=== PATIENT | female | born 1990 | race African-American/Black ===

== ENCOUNTER 2023-05-29 13:48 | Emergency (ER) | payer OTHER, SELFPAY ==
[2023-05-29] VITALS (16 sets, daily range): BP systolic 137–170; BP diastolic 77–123; PULSE 81–102; RESP 13–30; TEMP 36.9; O2SAT 77–100; BMI 33.2
--- NOTE | 2023-05-29 14:00 | ECG_ITS ---
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
--- NOTE | 2023-05-29 14:00 | XR_ITS ---
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 CLINICAL INDICATION: 33 years Female CP, HTN FINDINGS: The cardiomediastinal silhouette and pulmonary vasculature are within normal limits. The lungs are clear. There is no evidence of pleural effusion or pneumothorax. XR/XR chest 1V IMPRESSION: Chest radiograph is within normal limits. Electronically authenticated by: EVIN MILLER Date: 05/29/2023 14:37
--- NOTE | 2023-05-29 14:00 | ED.CHESTPAI1 ---
HPI - Chest Pain General Chief Complaint: Chest Pain Stated Complaint: GENERAL WEAKNESS Time Seen by Provider: 05/29/23 13:54 Source: patient Mode of arrival: ambulance Limitations: no limitations History of Present Illness HPI narrative: 33 year old female presents to the ED for intermittent CP, HTN. Onset was yesterday. Denies fever, chills, cough, SOB. Denies dizziness, vision changes, CUEVAS, weakness. She was started on amlodipine yesterday. She has been at [facility] for drug rehab due to fentanyl use. She arrived there 05/27/23. Denies pain currently. 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 Related Data Home Medications Medication Instructions Recorded Confirmed amlodipine 5 mg tablet 5 mg PO DAILY 05/29/23 05/29/23 escitalopram oxalate 10 mg tablet 10 mg PO DAILY 05/29/23 05/29/23 (Lexapro) lurasidone 20 mg tablet (Latuda) 20 mg PO DAILY 05/29/23 05/29/23 mirtazapine 15 mg tablet 15 mg PO DAILY 05/29/23 05/29/23 ropinirole 0.5 mg tablet 0.5 mg PO DAILY 05/29/23 05/29/23 Allergies Allergy/AdvReac Type Severity Reaction Status Date / Time codeine Allergy Severe Hives Verified 05/29/23 13:51 gabapentin AdvReac Severe Hallucinati Verified 05/29/23 13:51 ng Review of Systems ROS Constitutional Denies: fever or chills Eyes Denies: change in vision Ears, nose, mouth, and throat Denies: throat pain or neck pain Cardiovascular Reports: chest pain; Denies: palpitations, swelling of feet/ankles or lightheadedness Respiratory Denies: shortness of breath or cough Gastrointestinal Denies: abdominal pain, nausea, vomiting or diarrhea Musculoskeletal Denies: back pain or neck pain Integumentary/Breast Denies: rash or itching Neurological Denies: headache or dizziness Exam Constitutional Vital Signs, click to edit/add: Last Vital Signs Temp 98.4 F 05/29/23 13:51 Pulse 102 H 05/29/23 17:33 Resp 20 05/29/23 17:33 BP 155/97 H 05/29/23 18:07 Pulse Ox 100 05/29/23 18:07 O2 Del Method Room Air 05/29/23 13:51 Common normals: no apparent distress and oriented x3 General appearance: cooperative; not ill appearing Eye Common normals: conjunctivae normal and no scleral icterus Neck & C-Spine Common normals: supple Chest Chest: symmetrical chest wall rise Respiratory Effort & inspection: able to speak in complete sentences and symmetric chest movement Auscultation: clear to auscultation bilaterally Cardio Rate: regular rate Rhythm: regular rhythm Neuro Common normals: oriented x3 Sensorium/orientation: awake and alert Speech: speech normal Motor exam: other (Moves extremities.) Course Vital Signs Vital signs: Vital Signs Temperature 98.4 F 05/29/23 13:51 Pulse Rate 94 H 05/29/23 13:51 Respiratory Rate 20 05/29/23 13:51 Blood Pressure 145/109 H 05/29/23 13:51 Pulse Oximetry 99 05/29/23 13:51 Oxygen Delivery Method Room Air 05/29/23 13:51 Temperature 98.4 F 05/29/23 13:51 Pulse Rate 102 H 05/29/23 17:33 Respiratory Rate 20 05/29/23 17:33 Blood Pressure 155/97 H 05/29/23 18:07 Pulse Oximetry 100 05/29/23 18:07 Oxygen Delivery Method Room Air 05/29/23 13:51 MDM - Chest Pain MDM Narrative Medical decision making narrative: Findings were discussed with the patient. Initial troponin was unremarkable. She declined a repeat troponin. She was medicated for her BP and symptoms here with improvement. She was started on Norvasc yesterday at [facility] alcohol treatment facility. She was advised to take the medication as directed. Follow up with pcp for a recheck, further evaluation and treatment. Return precautions were discussed. Medical Records Data Attestation: I reviewed the patient's medical records. Lab Data Attestation: I reviewed the patient's lab results. Labs: Lab Results 05/29/23 Range/Units 14:07 WBC 13.5 H (4.0-11.0) 10^3/uL RBC 4.95 (4.20-5.40) 10^6/uL Hgb 15.6 (12.0-16.0) g/dL Hct 44.4 (36.0-48.0) % MCV 89.7 (81.0-99.0) fL MCH 31.5 (26.7-34.0) pg MCHC 35.1 (29.9-35.2) g/dL RDW 12.3 (11.0-15.0) % Plt Count 403 (150-450) 10^3/uL MPV 9.0 L (9.5-13.5) fL Neut % (Auto) 70.4 (43.0-75.0) % Lymph % (Auto) 21.0 (20.5-60.0) % Eddy % (Auto) 7.4 (1.7-12.0) % Eos % (Auto) 0.4 L (0.9-7.0) % Baso % (Auto) 0.4 (0.2-2.0) % Neut # (Auto) 9.5 H (1.4-6.5) 10^3/uL Lymph # (Auto) 2.8 (1.2-3.8) 10^3/uL Eddy # (Auto) 1.0 H (0.3-0.8) 10^3/uL Eos # (Auto) 0.1 (0.0-0.7) 10^3/uL Baso # (Auto) 0.1 (0.0-0.1) 10^3/uL Abs Immat Gran (auto) 0.05 H (0.00-0.03) 10^3/uL Imm/Tot Granulo (auto) 0.4 (0.0-0.5) % Sodium 141 (136-145) mmol/L Potassium 3.7 (3.5-5.1) mmol/L Chloride 105 (98-107) mmol/L Carbon Dioxide 26.9 (21.0-32.0) mmol/L Anion Gap 12.8 BUN 15.0 (7.0-18.0) mg/dL Creatinine 1.08 H (0.55-1.02) mg/dL Est GFR ( Amer) >60 (>=60) Est GFR (Non-Af Amer) 58 L (>=60) BUN/Creatinine Ratio 13.9 Glucose 115 H (74-106) mg/dL Calcium 9.3 (8.5-10.1) mg/dL Troponin I High Sens 6.3 (4.0-51.3) pg/mL Imaging Data Chest x-ray: Attestation: I have reviewed the pertinent imaging results. 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 CLINICAL INDICATION: 33 years Female CP, HTN FINDINGS: The cardiomediastinal silhouette and pulmonary vasculature are within normal limits. The lungs are clear. There is no evidence of pleural effusion or pneumothorax. XR/XR chest 1V IMPRESSION: Chest radiograph is within normal limits. Electronically authenticated by: EVIN MILLER Date: 05/29/2023 14:37 ECG Data Attestation: ?I have reviewed the pertinent ECG results. (EKG was reviewed by the attending physician.) Interpretation: Measurements Intervals [place] Rate: 89 P: 137 [place]: 172 QRS: 122 QRSD: 78 T: 150 QT: 310 QTc: 356 Interpretive Statements 1220 Rapid atrial rhythm 3534 Lateral myocardial infarction, age undetermined 6220 Possible left atrial enlargement 8305 Short QTc interval 0101 Possible arm leads reversed, check lead requested 9150 abnormal ECG No previous ECG available for comparison Discharge Plan Discharge Chief Complaint: Chest Pain Clinical Impression: Atypical chest pain, Hypertension Patient Disposition: Home, Self-Care Time of Disposition Decision: 18:02 Condition: Good Mode of Transportation: Private Vehicle Prescriptions / Home Meds: No Action escitalopram oxalate [Lexapro] 10 mg tablet 10 mg PO DAILY amlodipine 5 mg tablet 5 mg PO DAILY ropinirole 0.5 mg tablet 0.5 mg PO DAILY mirtazapine 15 mg tablet 15 mg PO DAILY lurasidone [Latuda] 20 mg tablet 20 mg PO DAILY Rx Instructions: must administer with food (at least 350 calories) Instructions: Chest Pain (ED), Hypertension (ED) Stand Alone Forms: Portal Instructions Referrals: AUBREY RODAS [Primary Care Provider] - As soon as possible Discharge Date/Time: 05/29/23 18:20
[2023-05-29 14:15] LABS: Basophils Absolute Auto 0.1 10^3/uL (0.0-0.1); Basophils Percent Auto 0.4 % (0.2-2.0); Eosinophils Absolute Auto 0.1 10^3/uL (0.0-0.7); Eosinophils Percent Auto 0.4 % (0.9-7.0); Hematocrit 44.4 % (36.0-48.0); Hemoglobin 15.6 g/dL (12.0-16.0); Immature Granulocytes Abs Auto 0.05 10^3/uL (0.00-0.03); Immature Granulocytes Pct Auto 0.4 % (0.0-0.5); Lymphocytes Absolute Auto 2.8 10^3/uL (1.2-3.8); Mean Corpuscular HGB Conc 35.1 g/dL (29.9-35.2); Mean Corpuscular Hemoglobin 31.5 pg (26.7-34.0); Mean Corpuscular Volume 89.7 fL (81.0-99.0); Monocytes Percent Auto 7.4 % (1.7-12.0); Neutrophils Absolute Auto 9.5 10^3/uL (1.4-6.5); Neutrophils Percent Auto 70.4 % (43.0-75.0); Platelet Count 403 10^3/uL (150-450); Red Blood Count 4.95 10^6/uL (4.20-5.40); Red Cell Distribution Width 12.3 % (11.0-15.0); White Blood Count 13.5 10^3/uL (4.0-11.0)
[2023-05-29 14:33] LABS: Anion Gap 12.8; BUN Creatinine Ratio 13.9; Calcium 9.3 mg/dL (8.5-10.1); Carbon Dioxide 26.9 mmol/L (21.0-32.0); Chloride 105 mmol/L (98-107); Estimated GFR (African America >60 (>=60); Estimated GFR (Non-African Ame 58 (>=60); Glucose 115 mg/dL (74-106); Potassium 3.7 mmol/L (3.5-5.1); Sodium 141 mmol/L (136-145); Troponin I High Sensitivity 6.3 pg/mL (4.0-51.3)
[2023-05-29] MEDS: CLONIDINE HCL 0.1 MG TABLET PO (15:02)
[2023-05-29] MEDS: ACETAMINOPHEN 500 MG TABLET 1000 MG PO (15:13)
[2023-05-29] MEDS: HYDROXYZINE HCL 25 MG TABLET PO (15:13)
[2023-05-29] MEDS: HYDRALAZINE HCL 20 MG/ML VIAL 10 MG IVP ×2 (16:06→17:10)
== END 2023-05-29 18:20 | disposition home or self-care (01) ==
PROVIDERS: Nurse Practitioner Family; Emergency Provider Emergency Medicine; PCP Family Medicine
DX: R07.89 Other chest pain (principal); I10 Essential (primary) hypertension; Z79.899 Other long term (current) drug therapy
CPT/HCPCS: 36415; 71045; 80048; 84484; 85025; 93005; 96374; 96376; 99285